=== PATIENT | female | born 1985 | race Caucasian/White ===

== ENCOUNTER 2016-06-07 13:06 | Emergency (ER) | payer OTHER ==
[~2016-06-07] VITALS: Ht 170.2 cm; Wt 79.4 kg
[~2016-06-07 13:06] MED LIST: ABILIFY 10 MG10 MG PO; BACTRIM DS 8001 TAB PO; BIRTH CONTROL PO; DOXYCYCLINE MO100 MG PO; FLEXERIL10 MG PO; IBUPROFEN800 MG PO; KEFLEX500 MG PO; LITHIUM CARBON300 M5 PO; NALTREXONE HCL50 M1 PO; NEURONTIN600 M1 PO; OXCARBAZEPINE300 M1 PO; PERCOCET 325 MG1 TA2 PO; PROPRANOLOL HCL20 M1 PO; VYVANSE20 M1 PO
[2016-06-07 13:09] VITALS: BP 117/75
--- NOTE | 2016-06-07 13:52 | ED AMS/SEIZURE/WEAK/DIZZY ---
History of Present Illness General Chief Complaint: General Adult Stated Complaint: PT IS DIZZY AND SHAKEY Source: patient, old records Exam Limitations: no limitations Vital Signs & Intake/Output Vital Signs & Intake/Output Vital Signs Date Time Temp Pulse Resp B/P B/P Pulse O2 O2 Flow FiO2 Mean Ox Delivery Rate 06/07 1309 97.5 60 16 117/75 98 Room Air Allergies Uncoded Allergies: OPIOID (Mild, RECOVERING ADDICT 04/29/15) Reconcile Medications Aripiprazole (Abilify) 10 MG TAB 1 TAB PO BID MENTAL HEALTH (Reported) Gabapentin (Neurontin) 600 MG TABLET 1 TAB PO BID ANXIETY (Reported) Lisdexamfetamine Dimesylate (Vyvanse) 20 MG CAPSULE 1 CAP PO DAILY MENTAL HEALTH (Reported) [place] Carbonate 300 MG TABLET 2 TAB PO BID MENTAL HEALTH (Reported) Naltrexone HCl 50 MG TABLET 1 TAB PO DAILY MENTAL HEALTH (Reported) Oxcarbazepine (Unknown Strength) TABLET (Unknown Dose) PO BID NEUROPATHY ( Reported) Propranolol HCl 20 MG TABLET 1 TAB PO DAILY UNKNOWN (Reported) Triage Note: PT STATES SHE HAS BEEN DIZZY FOR THE PAST FEW DAYS AND STATES THE LAST TIME THIS HAPPEND IT WAS HER LITHIUM LEVEL, STATES IT WAS TO HIGH. Triage Nurses Notes Reviewed? yes Onset: several days Duration: day(s):, continues in ED, intermittent Timing: recent history Injury Environment: home Severity: mild, moderate Modifying Factors: Worsens With: movement. Associated Symptoms: headache congestion LMP (ages 10-50): unknown : No Patient currently breastfeeds: No HPI: several days prior to admission patient complains of generalized headache congestion sore throat with episodic dizziness. She denies fever chills nausea vomiting diarrhea abdominal pain chest pain shortness of breath dysuria rash bleeding. She is concerned her lithium level is elevated. Past History Travel History Traveled to [place] past 21 day No Medical History Any Pertinent Medical History? see below for history Neurological: dizziness EENT: NONE Cardiovascular: NONE Respiratory: NONE Gastrointestinal: NONE Hepatic: NONE Renal: NONE Musculoskeletal: SLIPPED DISC PINCHED NERVE Psychiatric: bipolar disease, depression, ADHD Endocrine: NONE Blood Disorders: NONE Cancer(s): NONE CYCLE TOURING GUIDE/Reproductive: miscarriage History of MRSA: No History of VRE: No History of CDIFF: No Surgical History Surgical History: D&C X ?2- OR 3 Psychosocial History Who do you live with Patient/Self What is your primary language Zambian Tobacco Use: Current Daily Use Daily Tobacco Use Amount/Type: => 5 Cigarettes daily ETOH Use: occasional use Illicit Drug Use: denies illicit drug use Family History Hx Contributory? No Review of Systems Review of Systems Constitutional: Reports: see HPI, malaise. EENTM: Reports: see HPI, nasal congestion, throat pain. Respiratory: Reports: no symptoms. Cardiovascular: Reports: no symptoms. GI: Reports: no symptoms. Genitourinary: Reports: no symptoms. Musculoskeletal: Reports: no symptoms. Skin: Reports: no symptoms. Neurological/Psychological: Reports: see HPI. Hematologic/Endocrine: Reports: no symptoms. Immunologic/Allergic: Reports: no symptoms. All Other Systems: Reviewed and Negative Physical Exam Physical Exam General Appearance: well developed/nourished, alert, awake, anxious, mild distress Head: atraumatic, normal appearance Eyes: Bilateral: normal appearance, PERRL, EOMI, other (nystagmus). Ears, Nose, Throat: normal pharynx, normal ENT inspection Neck: normal inspection, supple, full range of motion, no midline tenderness Respiratory: normal breath sounds, chest non-tender, no respiratory distress, quiet respiration, lungs clear Cardiovascular: regular rate/rhythm, normal peripheral pulses, norml femoral pulses equa Peripheral Pulses: 4+ carotid (R), 4+ carotid (L) Gastrointestinal: normal bowel sounds, soft, non-tender, no organomegaly Back: normal inspection, normal range of motion Extremities: normal range of motion, no ligament instability Neurologic/Psych: no motor/sensory deficits, awake, alert, oriented x 3, normal gait, normal mood/affect, surfboard maker II-XII nml as tested Reflexes: 2+: bicep (R), bicep (L). Skin: intact, normal color, warm/dry Lymphatic: no anterior cervical kaushal Core Measures ACS in differential dx? No CVA/TIA Diagnosis: No Severe Sepsis Present: No Septic Shock Present: No Progress Differential Diagnosis: benign positional vertigo, drug intoxication, electrolyte imbalance, postural hypotension Plan of Care: Orders Procedure Date/time Status LITHIUM 06/07 1322 Complete COMPREHENSIVE METABOLIC PANEL 06/07 1322 Complete Laboratory Tests 06/07/16 1330: Anion Gap 9, Estimated GFR > 60, BUN/Creatinine Ratio 17.5, Glucose 87, Calcium 9.6, Total Bilirubin 0.4, AST 22, ALT 34, Alkaline Phosphatase 41, Total Protein 6.7, Albumin 4.2, Globulin 2.5, Albumin/Globulin Ratio 1.7, [place] 0.7 Initial ED EKG: none Departure Departure Time of Disposition: 1414 Disposition: HOME OR SELF CARE Condition: Stable Clinical Impression Primary Impression: Vertigo, labyrinthine Qualifiers: Laterality: unspecified laterality Qualified Code: H81.399 - Other peripheral vertigo, unspecified ear Referrals: SUE CORDOBA MD (PCP/Family) Departure Forms: Customer Survey General Discharge Information RELEASE- WORK Prescriptions: Current Visit Scripts Meclizine HCl 1 TAB PO TIDPRN PRN dizziness #30 TAB Scopolamine Hydrobromide (Transderm-Scop) 1 PAT TOP Q3D PRN dizziness #4 PAT apply to the hairless area behind 1 ear
[2016-06-07 14:02] LABS: LITHIUM 0.7 mmol/L (0.6-1.2)
[2016-06-07] MEDS ORDERED: TRANSDERM-SCOP1 EACH TOP (14:17)
[2016-06-07] MEDS ORDERED: MECLIZINE HCL25 MG PO (14:17)
== END 2016-06-07 14:45 ==
LOC: ERH 13:06
PROVIDERS: Emergency Medicine
DX: R42 Dizziness and giddiness (principal); H83.09 Labyrinthitis, unspecified ear

== ENCOUNTER 2017-05-01 13:47 | Emergency (ER) | payer OTHER ==
[~2017-05-01] VITALS: Ht 170.2 cm; Wt 86.2 kg
[~2017-05-01 13:47] MED LIST changes: +ABILIFY15 M1 PO; +GABAPENTIN300 M2 PO; +GABAPENTIN600 M1 PO; +LITHIUM CARBON450 M1 PO; +MECLIZINE HCL25 MG PO; +TRANSDERM-SCOP1 EACH TOP
[2017-05-01 15:00] LABS: ABSOLUTE BASOPHIL COUNT 0 /CUMM (0.0-0.2); ABSOLUTE EOSINOPHIL COUNT 0.2 /CUMM (0.0-0.7); ABSOLUTE GRANULOCYTE CT 5.4 /CUMM (1.4-6.5); ABSOLUTE LYMPH COUNT 2.6 /CUMM (1.2-3.4); ABSOLUTE MONOCYTE COUNT 0.7 /CUMM (0.10-0.60); BASOPHIL % 0.1 % (0.0-2.0); EOSINOPHIL % 1.8 % (0-5); GRANULOCYTE % 60.9 % (42.2-75.2); HEMATOCRIT 37.3 % (37-47); MEAN CORPUSCULAR HGB CONC 33.7 G/DL (33.0-37.0); MEAN PLATELET VOLUME 9.1 FL (7.4-10.4); PLATELET COUNT 232 /CUMM (130-400); RBC DISTRIBUTION WIDTH 14.4 % (11.5-14.5); RED BLOOD CELL CT 4.19 /CUMM (4.20-5.40); WHITE BLOOD CELL COUNT 8.9 /CUMM (4.8-10.8)
[2017-05-01 15:03] LABS: PT 10.7 SEC (9.4-12.5)
--- NOTE | 2017-05-01 16:53 | ED GI/GU/ABDOMINAL COMPLAINT ---
History of Present Illness General Chief Complaint: Female Urogenital Problems Stated Complaint: IRREGULAR BLEEDING Source: patient Exam Limitations: no limitations Vital Signs & Intake/Output Vital Signs & Intake/Output Vital Signs Date Time Temp Pulse Resp B/P B/P Pulse O2 O2 Flow FiO2 Mean Ox Delivery Rate 05/01 1737 97.6 82 18 132/72 98 Room Air 05/01 1404 97.6 80 20 118/77 98 Room Air Allergies Uncoded Allergies: OPIOID (Mild, RECOVERING ADDICT 04/29/15) Reconcile Medications Aripiprazole (Abilify) 10 MG TAB 1 TAB PO BID MENTAL HEALTH (Reported) Aripiprazole (Abilify) 15 MG TABLET 1 TAB PO DAILY MENTAL HEALTH Aripiprazole (Abilify) 15 MG TABLET 1 TAB PO DAILY MENTAL HEALTH Gabapentin (Neurontin) 600 MG TABLET 1 TAB PO BID ANXIETY (Reported) Gabapentin 300 MG CAPSULE 2 CAP PO BID ANXIETY Gabapentin 600 MG TABLET 1 TAB PO DAILY MENTAL HEALTH Lisdexamfetamine Dimesylate (Vyvanse) 20 MG CAPSULE 1 CAP PO DAILY MENTAL HEALTH (Reported) [place] Carbonate 300 MG TABLET 2 TAB PO BID MENTAL HEALTH (Reported) [place] Carbonate ([place] Carbonate ER) 450 MG TABLET.ER 1 TAB PO DAILY MENTAL HEALTH [place] Carbonate ([place] Carbonate ER) 450 MG TABLET.ER 1 TAB PO DAILY MENTAL HEALTH Meclizine HCl 25 MG TABLET 1 TAB PO TIDPRN PRN dizziness Naltrexone HCl 50 MG TABLET 1 TAB PO DAILY MENTAL HEALTH (Reported) Oxcarbazepine (Unknown Strength) TABLET (Unknown Dose) PO BID NEUROPATHY ( Reported) Propranolol HCl 20 MG TABLET 1 TAB PO DAILY UNKNOWN (Reported) Scopolamine Hydrobromide (Transderm-Scop) 1.5MG/3DAY PATCH.TD.3 1 PAT TOP Q3D PRN dizziness apply to the hairless area behind 1 ear Triage Note: PT C/O HEAVY VAGINAL BLEEDING WITH DIZZINESS AND NAUSEA X 2 DAYS Triage Nurses Notes Reviewed? yes ? N Is pt currently ? No HPI: Patient presents for evaluation of vaginal bleeding that began abruptly about 2 days ago. Patient is currently experiencing her menstrual period. Patient states her periods typically last about 2 days and consist of only light bleeding. Currently the patient states she is been going through a heavy pad every 2-3 hours. She is also experiencing dizziness nauseousness and lightheadedness. She is also experiencing lower abdominal cramping. Today is the third day of her period and she feels that this is very unusual for her. Patient is sexually active with her current partner (he has had a vasectomy and the patient doesn't typically use protection). In addition the patient is experiencing diarrhea over the past 2 days, twice per day (nonbloody). Patient also tried Advil for headache but this did not impact on the vaginal bleeding. Patient also has been experiencing chills over the past 2 days. Patient denies any associated vaginal discharge or history of STDs. Past History Travel History Traveled to [place] past 21 day No Medical History Any Pertinent Medical History? 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 No Review of Systems Review of Systems Constitutional: Reports: chills. EENTM: Reports: no symptoms. Respiratory: Reports: no symptoms. Cardiovascular: Reports: no symptoms. GI: Reports: see HPI. Genitourinary: Reports: see HPI. Musculoskeletal: Reports: no symptoms. Skin: Reports: no symptoms. Neurological/Psychological: Reports: headache. Hematologic/Endocrine: Reports: no symptoms. Immunologic/Allergic: Reports: no symptoms. All Other Systems: Reviewed and Negative Physical Exam Physical Exam Gastrointestinal: SEE BELOW Comments: Gen.: Well-nourished, well-developed, no acute respiratory distress. Head: Normocephalic, atraumatic. Eyes: Normal inspection bilaterally Ears: Normal inspection bilaterally Nose: Normal inspection Throat/mouth : Moist mucosa Neck: Supple, full range of motion, no goiter Heart: Regular rate and rhythm, no murmurs rubs or gallops Lungs: Clear to auscultation bilaterally with normal air entry Chest: Nontender Back: Normal range of motion Abdomen: Soft, nontender, nondistended, normal bowel sounds Extremities: Normal range of motion grossly, equal radial pulses, no cyanosis clubbing or edema Neurologic: Cranial nerves grossly intact, speech is clear Skin: warm and dry Psychiatric: Calm, cooperative, no apparent delusions or hallucinations paper control clerk: Core Measures ACS in differential dx? No Sepsis Present: No Sepsis Focused Exam Completed? No Progress Differential Diagnosis: DYSMENORRHEA, DYSMENORRHAGIA, RECTAL BLEEDING, HEMATURIA Plan of Care: Orders Procedure Date/time Status PROTHROMBIN TIME 05/01 1410 Complete COMPREHENSIVE METABOLIC PANEL 05/01 1410 Complete CBC WITHOUT DIFFERENTIAL 05/01 1410 Complete TYPE & SCREEN (NOT X-MATCH) 05/01 1410 Complete URINE 05/01 134 Complete URINALYSIS 05/01 134 Complete Laboratory Tests 05/01/17 1451: Urine Color YEL, Urine Clarity CLEAR, Urine pH 7.0, Ur Specific [place] 1.015, Urine Protein NEG, Urine Ketones NEG, Urine Nitrite NEG, Urine Bilirubin NEG, Urine Urobilinogen 0.2, Ur Leukocyte Esterase NEG, Ur Microscopic EXAM NOT REQUIRED, Urine Hemoglobin NEG, Urine Glucose NEG, Urine Test NEGATIVE 05/01/17 1450: Anion Gap 7, Estimated GFR > 60, BUN/Creatinine Ratio 17.5, Glucose 86, Calcium 9.4, Total Bilirubin 0.3, AST 22, ALT 34, Alkaline Phosphatase 55, Total Protein 6.6, Albumin 3.9, Globulin 2.7, Albumin/Globulin Ratio 1.4, PT 10.7, INR 0.98, CBC w Diff NO MAN DIFF REQ, RBC 4.19 L, MCV 89.0, MCH 30.0, MCHC 33.7, RDW 14.4 , MPV 9.1, Gran % 60.9, Lymphocytes % 29.2, Monocytes % 8.0, Eosinophils % 1.8, Basophils % 0.1, Absolute Granulocytes 5.4, Absolute Lymphocytes 2.6, Absolute Monocytes 0.7 H, Absolute Eosinophils 0.2, Absolute Basophils 0 Initial ED EKG: none Comments: 05/01/2017 5:43:59 PM patient's case discussed with Dr. Still who feels the patient can be managed as an outpatient with office follow-up. Departure Departure Disposition: HOME OR SELF CARE Condition: Stable Clinical Impression Primary Impression: Menorrhagia Qualifiers: Menorrahagia type: with regular cycle Qualified Code: N92.0 - Excessive and frequent menstruation with regular cycle Referrals: Jocelyne La APRN (PCP/Family) Additional Instructions: Follow-up with Dr. Hernandez for reevaluation this week. Return if any concerns or sudden worsening. Thank you for choosing the [facility] for your care. It was a pleasure to serve you today. Colby Delcid M.D. [facility] Departure Forms: Customer Survey General Discharge Information
[2017-05-01 17:37] VITALS: BP 132/72
== END 2017-05-01 17:39 ==
LOC: ERH 13:47
PROVIDERS: Physician Assistant Medical
DX: N92.0 Excessive and frequent menstruation with regular cycle (principal)
CPT/HCPCS: 81003; 81025